=== PATIENT | male | born 1960 | race African-American/Black ===

== ENCOUNTER 2020-06-10 07:53 | Emergency (ER) | payer OTHER, MEDICAID ==
[~2020-06-10] VITALS: Ht 185.4 cm; Wt 95.5 kg
[2020-06-10 07:55] VITALS: BP 160/97
[2020-06-10] MEDS ORDERED: IBUPROFEN 600 MG TABLET PO ONE (08:45)
== END 2020-06-10 09:10 | disposition home or self-care (01) ==
LOC: EMS 07:53
DX: M79.671 Pain in right foot (principal); F17.210 Nicotine dependence, cigarettes, uncomplicated
CPT/HCPCS: 99283

== ENCOUNTER 2023-01-30 11:04 | Emergency (ER) | payer OTHER ==
[~2023-01-30] VITALS: Ht 185.4 cm; Wt 95.5 kg
[2023-01-30 11:09] VITALS: TEMP 98.6
[2023-01-30] MEDS ORDERED: IBUPROFEN 600 MG TABLET PO ONE (13:45)
[2023-01-30] MEDS ORDERED: LIDOCAINE 5% TRANSDERMAL PATCH TD ONE (13:45)
[2023-01-30] MEDS ORDERED: BACLOFEN 10 MG TABLET PO ONE (13:45)
[2023-01-30] MEDS ORDERED: LIDO700A15 TP (16:03)
[2023-01-30] MEDS ORDERED: IBUP-1492 PO (16:04)
[2023-01-30] MEDS ORDERED: BACL10TA PO (16:04)
[2023-01-30 16:15] VITALS: BP 134/79; PULSE 74; RESP 17
== END 2023-01-30 16:33 | disposition home or self-care (01) ==
LOC: EMS 11:37
DX: M54.50 Low back pain, unspecified (principal); F12.90 Cannabis use, unspecified, uncomplicated; Z87.891 Personal history of nicotine dependence
CPT/HCPCS: 72100; 99284; 73610-TC; Z7502; Z7610